=== PATIENT | male | born 1960 | race Hispanic/Latino ===

== ENCOUNTER → 2017-11-01 | Outpatient (CLI) | payer BC ==
[~2017-11-01] MED LIST: CLARITIN-D 241 EACH PO; CLINDAMYCIN HC150 MG PO; DAYQUIL PO; HYDROCHLOROTH12.5 MG PO; LISINOPRIL-HCT1 EAC2 PO; PHENERGAN25 MG/1 ML PO; TYLENOL WITH C1 EACH PO
--- NOTE | 2017-11-01 08:36 | Diagnostic Imaging Report ---
PROCEDURE:X-RAY ABDOMEN - KUB COMPARISON:None. INDICATIONS:URINARY TRACT INFECTION FINDINGS: The bowel gas pattern shows no dilated, air-filled loops of bowel. No definite calcifications project over the renal shadows or expected ureteral courses. Probable right pelvic phlebolith. Regional skeletal structures are intact. CONCLUSION: nonobstructive bowel gas pattern. No plain film evidence of urolithiasis. Dictated by: Shay Sanz M.D. on 11/01/2017 at 8:44 Electronically approved by: Shay Sanz M.D. on 11/01/2017 at 8:44
--- NOTE | 2017-11-01 08:54 | Diagnostic Imaging Report ---
PROCEDURE:US RETROPERITONEAL ( KIDNEY ). COMPARISON:None. INDICATIONS:UTI TECHNIQUE: Ramachandran-scale and color sonographic images of the bilateral kidneys and bladder where obtained in transverse and longitudinal planes. FINDINGS: RIGHT KIDNEY: 10.9 cm in length, cortical thickness 2 cm Cysts: None Solid masses: None Stones: None Hydronephrosis: None Echogenicity: Normal renal cortical echogenicity. LEFT KIDNEY: 12.9 cm in length, cortical thickness 1.9 cm Cysts: None Solid masses: None Stones: None Hydronephrosis: None Echogenicity: Normal renal cortical echogenicity. Bladder: Unremarkable. Right and left ureteral jets are identified. Prostate: 1.6 x 1.6 x 1.7 cm, estimated volume 2.2 cc. CONCLUSION: Unremarkable sonographic appearance of the kidneys. Dictated by: Shay Sanz M.D. on 11/01/2017 at 9:02 Electronically approved by: Shay Sanz M.D. on 11/01/2017 at 9:02
== END ==
LOC: US 07:29
PROVIDERS: ATTEND Urology
DX: N39.0 Urinary tract infection, site not specified (principal)
CPT/HCPCS: 74018; 76770

== ENCOUNTER → 2017-11-03 | Day surgery (SDC) | payer BC ==
[2017-11-01 10:21] LABS: ANION GAP 12.1 mmol/L (8-16); BLOOD UREA NITROGEN 16 mg/dL (7-26); BUN/CREATININE RATIO 20 (6-25); CARBON DIOXIDE 27 mmol/L (22-29); CHLORIDE 102 mmol/L (98-107); EST GLOMERULAR FILTRATION RATE > 60 ML/MIN (60-); GLUCOSE 96 mg/dL (74-118); POTASSIUM 4.1 mmol/L (3.5-5.1); SODIUM 137 mmol/L (136-145)
[~2017-11-03] MED LIST changes: +CEFTRIAXONE SOD 1 GM VIAL ONE; +DEXAMETHASONE SOD PHOS INJ 4 MG/ML VIAL ONE; +FENTANYL CITRATE/PF 100MCG/2 ML INJ ONE; +IOPAMIDOL 610MG/1ML 300 MG/ML VIAL IV ONE; +LIDOCAINE HCL 2% LOCAL INJ 5 ML SDV VIAL INJ ONE; +MIDAZOLAM HCL 2 MG/2 ML VIAL ONE; +ONDANSETRON HCL INJ 2 MG/ML VIAL ONE; +PROPOFOL IV EMULSION 10 MG/ML 20 ML VIAL ONE; +SEVOFLURANE INHAL SOLN 250 ML PEN BTL ONE
[2017-11-03 12:00] VITALS: BP 122/80
--- OUTSIDE RECORDS SUMMARY | 2017-11-23 07:12 | XMS REPORT ---
[facility] Address Unknown Phone Unavailable Care Team Providers Care Flight Crew Time Clerk Name Role Phone GINA SUÁREZ Unavailable Unavailable Problems This patient has no known problems. Allergies, Adverse Reactions, Alerts This patient has no known allergies or adverse reactions. Medications This patient has no known medications. Results Test Description Test Time Test Comments Text Results Atomic Results Result Comments US RENAL RETROPERITONEAL COMP 2017-11-01 09:02:00 [place] [address] Patient Name: YAHAIRA KELLY MR #: [id number] : 1960 Age/Sex: 57/M Req #: [id number] Adm Physician: Ordered by: GINA SUÁREZ MD Report #: [id number] Location: US Room/Bed: Procedure: US/US RENAL RETROPERITONEAL COMP Exam Date: Exam Time: REPORT STATUS: Signed PROCEDURE: US RETROPERITONEAL ( KIDNEY ). COMPARISON: None. INDICATIONS: UTI TECHNIQUE: Ramachandran-scale and color sonographic images of the bilateral kidneys and bladder where obtained in transverse and longitudinal planes. FINDINGS: RIGHT KIDNEY: 10.9 cm in length, cortical thickness 2 cm Cysts: None Solid masses: None Stones: None Hydronephrosis: None Echogenicity: Normal renal cortical echogenicity. LEFT KIDNEY: 12.9 cm in length, cortical thickness 1.9 cm Cysts: None Solid masses: None Stones: None Hydronephrosis: None Echogenicity: Normal renal cortical echogenicity. Bladder: Unremarkable. Right and left ureteral jets are identified. Prostate: 1.6 x 1.6 x 1.7 cm, estimated volume 2.2 cc. CONCLUSION: Unremarkable sonographic appearance of the kidneys. Dictated by: Lio King M.D. on 11/01/2017 at 9:02 Electronically approved by: Lio King M.D. on 11/01/2017 at 9:02 Dictated By: LIO KING MD 1 Transcribed By: MEGA on 11/01/17901 COPY TO: GINA SUÁREZ MD ABDOMEN-1VIEW (KUB) 2017-11-01 08:44:00 [place] [address] Patient Name: YAHAIRA KELLY MR #: [id number] : 1960 Age/Sex: 57/M Req #: [id number] Adm Physician: Ordered by: GINA SUÁREZ MD Report #: [id number] Location: Room/Bed: Procedure: [id number] DX/ABDOMEN-1VIEW (KUB) Exam Date: 11/01/17 Exam Time: 0750 REPORT STATUS: Signed PROCEDURE: X-RAY ABDOMEN - KUB COMPARISON: None. INDICATIONS: URINARY TRACT INFECTION FINDINGS: The bowel gas pattern shows no dilated, air-filled loops of bowel. No definite calcifications project over the renal shadows or expected ureteral courses. Probable right pelvic phlebolith. Regional skeletal structures are intact. CONCLUSION: nonobstructive bowel gas pattern. No plain film evidence of urolithiasis. Dictated by: Lio King M.D. on 11/01/2017 at 8:44 Electronically approved by: Lio King M.D. on 11/01/2017 at 8:44 Dictated By: LIO KING MD 3 Transcribed By: MEGA on 11/01/17843 COPY TO: GINA SUÁREZ MD
--- NOTE | 2017-12-20 07:36 | Operative Report ---
DATE OF PROCEDURE: November 03, 2017 PREOPERATIVE DIAGNOSIS: Complicated urinary tract infection. POSTOPERATIVE DIAGNOSIS: Complicated urinary tract infection. OPERATIONS PERFORMED 1. Cystourethroscopy with bilateral ureteral catheterization and retrograde ureteropyelography. 2. Interpretation of retrograde ureteropyelography. 3. Supervision of fluoroscopy. No radiologist present. ANESTHESIA: General. COMPLICATIONS: None. CLINICAL SUMMARY: Dionicio Acuña is a 57-year-old man who had an ESBL urinary tract infection. He is brought for evaluation. He is aware of the risks of bleeding, infection, injury to adjacent structures, need for additional procedures, and elected to proceed. OPERATIVE PROCEDURE IN DETAIL: Informed consent was verified. Dionicio Acuña was properly identified and taken to the operating room and placed on the cystoscopy table in the supine position. Anesthesia was uneventfully begun. The patient then carefully and gently repositioned in the dorsal lithotomy position with all pressure points well-padded. His genitalia were prepared and draped in the usual sterile fashion. The 22.5-St Lucian cystoscope sheath with visual obturator in place was atraumatically inserted into the patient's urethra. It was guided down the relatively unremarkable urethra past a normal sphincteric region through the prostate bed, which was significant for early BPH. We entered the patient's bladder where there were grade 1 trabeculations, but no tumors. No stones. No diverticula. Normally positioned and configured ureteral orifices were identified. A ureteral catheter was used to cannulate each ureter, and retrograde ureteropyelograms were performed. Interpretation of retrograde ureteropyelography. Contrast was instilled in a retrograde fashion bilaterally. There were no tumors. No stones and no diverticula. Unobstructed drainage was observed bilaterally fluoroscopically. The patient's bladder was then drained. The cystoscope was withdrawn. Digital rectal examination revealed a 30 g prostate, smooth nonfluctuant without any nodules. Patient was uneventfully reversed from anesthesia and taken to the recovery room in stable condition. Explicit postoperative instructions were given. Will plan to follow the patient up in the office for uroflowmetry and bladder ultrasonography. Job#: [id number] MA
== END | disposition home or self-care (01) ==
LOC: OR 07:13
PROVIDERS: ATTEND Urology
DX: N39.0 Urinary tract infection, site not specified (principal); N40.0 Benign prostatic hyperplasia without lower urinary tract symptoms; N32.89 Other specified disorders of bladder; R35.1 Nocturia; I10 Essential (primary) hypertension; Z01.810 Encounter for preprocedural cardiovascular examination; Z01.812 Encounter for preprocedural laboratory examination
CPT/HCPCS: 36415; 52005; 74420; 80048; 93005; C1758; J0696; J1100; J2001; J2250; J2405; Q9967